=== PATIENT | male | born 1995 | race Caucasian/White ===

== ENCOUNTER 2017-06-14 17:01 | Emergency (ER) | payer OTHER ==
[2017-06-14 17:56] VITALS: BP 125/73
--- NOTE | 2017-06-14 18:14 | UC ---
Nausea/Vomiting/Diarrhea HPI - HPI Summary HPI Summary: 21 year old male presents with complains of cough, nasal congestion, and nausea. - History of Current Complaint Chief Complaint: UCGeneralIllness Stated Complaint: ACHY VOMITING COUGH CONGESTION Time Seen by Provider: 06/14/17 18:13 Hx Obtained From: Patient Onset/Duration: Sudden Onset Severity Initially: Moderate Severity Currently: Moderate - Allergies/Home Medications Allergies/Adverse Reactions: Allergies Allergy/AdvReac Type Severity Reaction Status Date / Time Penicillin V Allergy Rash Verified 06/14/17 17:52 Home Medications: Home Medications Dextromethorphan-Phenylephrine [Vicks Dayquil Cold & Flu] 2 cap PO Q6H PRN 06/14 [History Confirmed 06/14/17] Pseudoephedrine TAB* [Sudafed TAB*] 30 mg PO TID PRN 06/14/17 [History Confirmed 06/14/17] PMH/Surg Hx/FS Hx/Imm Hx Previously Healthy: Yes - Surgical History Surgical History: Yes Surgery Procedure, Year, and Place: 2009 R inner ear - Social History Alcohol Use: None Substance Use Type: None Smoking Status (MU): Never Smoked Tobacco - Immunization History Vaccination Up to Date: Yes Review of Systems Constitutional: Negative Skin: Negative Eyes: Negative ENT: Negative Respiratory: Negative Cardiovascular: Negative Gastrointestinal: Vomiting, Nausea Genitourinary: Negative Motor: Negative Neurovascular: Negative Musculoskeletal: Negative Neurological: Negative Psychological: Negative All Other Systems Reviewed And Are Negative: Yes Physical Exam Triage Information Reviewed: Yes Appearance: Ill-Appearing Vital Signs: Initial Vital Signs Temp 37.4 C 06/14/17 17:53 Pulse 128 06/14/17 17:53 Resp 16 06/14/17 17:53 BP 125/73 06/14/17 17:53 Pulse Ox 97 06/14/17 17:53 Vital Signs Reviewed: Yes Eye Exam: Normal ENT Exam: Normal Dental Exam: Normal Neck exam: Normal Neck: Positive: 1 Respiratory Exam: Normal Cardiovascular Exam: Normal Abdominal Exam: Normal Musculoskeletal Exam: Normal Neurological Exam: Normal Psychological Exam: Normal Skin Exam: Normal Naus/Vom/Diarrhea Course/Dx - Differential Dx/Diagnosis Provider Diagnoses: cough. nasal congestion. nausea. vomitting Condition At Discharge: Stable Discharge - Discharge Plan Condition: Stable Disposition: HOME Prescriptions: Azithromyxin BIANKA (NF) [Z-Bianka (Zithromax) 250 mg tabs #6] 2 tab PO .TODAY, THEN 1 DAILY #6 tab Methylprednisolone [Medrol Dosepak 4 MG*] 4 mg PO .SEE BIANKA INSTRUCTION #21 tab Promethazine-Dm [Promethazine/Dextromethor 6.25-15 mg/5Ml] 1 teasp PO Q8H PRN # 120 ml PRN Reason: Cough Patient Education Materials: Sinusitis (ED) Forms: *Work Release Referrals: NYA Grant [Primary Care Provider] -
== END 2017-06-14 18:56 | disposition home or self-care (01) ==
LOC: UCCORT 17:01
DX: R11.2 Nausea with vomiting, unspecified (principal); R09.81 Nasal congestion; R05 Cough; Z88.0 Allergy status to penicillin
CPT/HCPCS: 87502; 99212; G0463

== ENCOUNTER 2017-06-16 13:00 | Emergency (ER) | payer OTHER ==
[2017-06-16 13:10] VITALS: BP 124/74
--- NOTE | 2017-06-16 13:26 | UC ---
Respiratory Complaint HPI - HPI Summary HPI Summary: cough, congestion, chills and vomiting. This hasbeen present for about 4 days. No improvement after treatment two days ago. Flu test neg two days ago. - History of Current Complaint Chief Complaint: UCRespiratory Stated Complaint: RE-CK FLU LIKE SXS Time Seen by Provider: 06/16/17 13:10 Hx Obtained From: Patient Onset/Duration: Gradual Onset, Lasting Days Timing: Constant Severity Initially: Moderate Severity Currently: Moderate Character: Cough: Nonproductive Aggravating Factors: Deep Breaths, Recumbent Position Alleviating Factors: Nothing Associated Signs And Symptoms: Positive: Chills, URI, Nasal Congestion. Negative: Fever, Sinus Discomfort - Allergies/Home Medications Allergies/Adverse Reactions: Allergies Allergy/AdvReac Type Severity Reaction Status Date / Time Penicillin V Allergy Rash Verified 06/16/17 13:07 PMH/Surg Hx/FS Hx/Imm Hx Previously Healthy: Yes - no prior lung disease. - Surgical History Surgical History: Yes Surgery Procedure, Year, and Place: 2009 R inner ear - Family History Known Family History: Positive: Other - no related family history. - Social History Occupation: Employed Full-time Lives: With Family Alcohol Use: None Substance Use Type: None Smoking Status (MU): Never Smoked Tobacco - Immunization History Most Recent Influenza Vaccination: no Vaccination Up to Date: Yes Review of Systems ENT: Sore Throat, Sinus Congestion Respiratory: Cough All Other Systems Reviewed And Are Negative: Yes Physical Exam Triage Information Reviewed: Yes Appearance: Well-Appearing - non toxic. there is obvious nasal congestion but he is alert and pleasant., No Pain Distress, Well-Nourished Vital Signs: Initial Vital Signs Temp 98.9 F 06/16/17 13:03 Pulse 104 06/16/17 13:03 Resp 18 06/16/17 13:03 BP 124/74 06/16/17 13:03 Pulse Ox 99 06/16/17 13:03 Vital Signs Reviewed: Yes Eyes: Positive: Conjunctiva Clear ENT: Positive: Pharynx normal, Nasal congestion, Other: - left TM perforation. appears chronic.. Negative: Pharyngeal erythema, Tonsillar swelling, Tonsillar exudate, Trismus Neck exam: Normal Neck: Positive: Supple, Nontender, No Lymphadenopathy Respiratory: Positive: Chest non-tender, Lungs clear, Normal breath sounds, No respiratory distress, No accessory muscle use. Negative: Respiratory distress, Decreased breath sounds, Accessory muscle use, Crackles, Rhonchi, Stridor, Wheezing Cardiovascular: Positive: No Murmur, Pulses Normal, Brisk Capillary Refill, Tachycardia Abdomen Description: Positive: Nontender, No Organomegaly, Soft. Negative: Distended, Guarding Musculoskeletal Exam: Normal Musculoskeletal: Positive: Strength Intact, ROM Intact, No Edema Neurological: Positive: Alert, Muscle Tone Normal. Negative: Fatigued Skin: Negative: rashes UC Diagnostic Evaluation - Laboratory O2 Sat by Pulse Oximetry: 99 Respiratory Course/Dx - Course Course Of Treatment: no signs of bacterial infection. He is well except for the mild tachycardia. there are otherwise no signs of dehydration. He has only vomited twice today. No fever. - Differential Dx/Diagnosis Provider Diagnoses: viral illness Discharge - Discharge Plan Condition: Good Disposition: HOME Patient Education Materials: Upper Respiratory Infection (ED) Forms: *Work Release Referrals: NYA Grant [Primary Care Provider] - Additional Instructions: return here for any worsening. dry mucinex decongestant.
== END 2017-06-16 13:47 | disposition home or self-care (01) ==
LOC: UCCORT 13:00
DX: R05 Cough (principal); R09.89 Other specified symptoms and signs involving the circulatory and respiratory systems; R50.9 Fever, unspecified; R11.2 Nausea with vomiting, unspecified; B34.9 Viral infection, unspecified
CPT/HCPCS: 99212; G0463

== ENCOUNTER 2017-07-30 07:22 | Day surgery (SDC) | payer OTHER ==
[~2017-07-30 07:22] MED LIST: Acetaminophen TAB* 325 MG PO ONE; Buffered Lidocaine 0.9% SYRIN* 5 ML/SYR SYRINGE INTRADERM ONE; Dexamethasone IV* 4 MG/ML 1 ML (4 MG) IV SLOW PU ONE; Famotidine TAB* 20 MG PO ONE; Levalbuterol 0.63MG/3ML NEB* UNIT OF USE INH ONE
[2017-07-30] MEDS ORDERED: Famotidine IV* 10 MG/ML 2 ML (20 mg) ONE (07:27)
[2017-07-30] MEDS ORDERED: Acetaminophen TAB* 325 MG ONE (07:27)
[2017-07-30] MEDS ORDERED: Buffered Lidocaine 0.9% SYRIN* 5 ML/SYR SYRINGE ONE (07:27)
[2017-07-30] MEDS ORDERED: Dexamethasone IV* 4 MG/ML 1 ML (4 MG) ONE (07:27)
[2017-07-30] MEDS ORDERED: Levalbuterol 1.25MG/0.5ML NEB ONE (07:27)
[2017-07-30] MEDS ORDERED: Famotidine TAB* 20 MG ONE (07:41)
[2017-07-30] MEDS ORDERED: fentaNYL* 50 MCG/ML 2 ML VIAL (100 MCG VIAL) ONE (08:06)
[2017-07-30] MEDS ORDERED: Propofol* 10 MG/ML 20 ML BTL IV PUSH ONE ×2 (08:06→09:09)
[2017-07-30] MEDS ORDERED: Lidocaine 2% PF * 5 ML VIAL ONE (08:06)
[2017-07-30] MEDS ORDERED: Midazolam* 1 MG/ML 2 ML VIAL (2 MG) ONE (08:06)
[2017-07-30] MEDS ORDERED: Ofloxacin 0.3% OTIC.SOL* 5 ML BTL ONE (08:13)
[2017-07-30] MEDS ORDERED: EPINEPHrine AMP 1 MG/ML ONE (08:14)
[2017-07-30] MEDS ORDERED: Bacitracin OINTMENT* 1 TUBE ONE (08:14)
[2017-07-30] MEDS ORDERED: Gelfoam 12-7 ADSORBABL SPONGE* 1 EA SPONGE ONE (08:14)
[2017-07-30] MEDS ORDERED: Lidocaine 1% MPF wEPI 200,000* 30 ML SDV ONE (08:14)
[2017-07-30] MEDS ORDERED: HYDROmorphone INJ* 1 MG/ML CARPUJECT SYRINGE IV PRN (08:30)
[2017-07-30] MEDS ORDERED: fentaNYL* 50 MCG/ML 2 ML VIAL (100 MCG VIAL) IV PRN (08:30)
[2017-07-30] MEDS ORDERED: oxyCODONE TAB* 5 MG TAB PO PRN (08:30)
[2017-07-30] MEDS ORDERED: Ondansetron INJ* 2 MG/ML VIAL IV PRN (08:30)
[2017-07-30] MEDS ORDERED: Ibuprofen TAB* 600 MG PO PRN (08:30)
[2017-07-30] MEDS ORDERED: Ondansetron INJ* 2 MG/ML VIAL ONE (09:16)
[2017-07-30 11:42] VITALS: BP 136/85
--- NOTE | 2017-07-31 06:16 | OP ---
DATE OF OPERATION: 07/30/17 - [facility] DATE OF : 89 SURGEON: Robert Valencia MD ANESTHESIA: Under laryngeal mask airway anesthesia. PRE-OP DIAGNOSIS: Left tympanic membrane perforation. POST-OP DIAGNOSIS: Left tympanic membrane perforation. OPERATIVE PROCEDURE: Left type 1 tympanoplasty. COMPLICATIONS: None. DISPOSITION: Good. SPECIMENS: None. ESTIMATED BLOOD LOSS: Minimum. DESCRIPTION OF PROCEDURE: The patient was taken to the operating room and placed in the supine position on the operating table. General anesthesia was induced and he was maintained with laryngeal mask airway anesthesia, turned and draped for the surgery. Using the microscope, 4-quadrant canal injections were performed with 1% lidocaine with 1:200,000 epinephrine. A postauricular injection was made and an injection where I was going to raise the temporalis graft. He was prepped with Betadine. He had a large central perforation pretty much extending from the posterior to anterior quadrants, right almost to the anulus. Using a Gamble needle, done. The rim was removed with cupped forceps and some of the tympanic membrane was lifted off of the umbo and long process of the malleus. A posterior canal incision was made with a 70- degree Louis. was used to elevate the tympanomeatal flap, annulus was opened and the flap was elevated anteriorly with the tympanic membrane. Cottonoids impregnated with 1:100,000 epinephrine was placed. Incision was made post-auricularly at the superior aspect of the ear to harvest the temporalis fascia graft. The dissection was taken down to the temporalis fascia. This was opened and the graft was harvested. The wound was closed with 4-0 deep dermal of Vicryl and then skin glue. The ear was then re- examined. The cotton ball was removed. Gelfoam impregnated with Ciprodex drops was put in the middle ear space for the scaffolding for the graft. The graft had been pressed and dried. It was shaped and then inserted over the Gelfoam underneath the tympanic membrane, positioned. The tympanomeatal flap was reflected back over, proper closure of the perforation was ensured. Gelfoam impregnated with antibiotic drops were placed over the graft and tympanic membrane, completely covering this and then the rest of the canal was filled up with some bacitracin ointment. The cotton ball was placed. The patient tolerated procedure well. No complications. Transferred to Recovery in stable condition. [id number]/[facility] #: [id number] [facility] HOSPITALGregor
== END 2017-07-30 11:58 | disposition home or self-care (01) ==
LOC: OR 07:22
PROVIDERS: ATTEND Otolaryngology
DX: H72.02 Central perforation of tympanic membrane, left ear (principal); F17.210 Nicotine dependence, cigarettes, uncomplicated
CPT/HCPCS: A9270-GY; J0171; J1100; J2001; J2250; J2405; J2704; J3010

== ENCOUNTER 2019-05-15 13:37 | Emergency (ER) | payer OTHER ==
[2019-05-15 14:23] VITALS: BP 145/78
[2019-05-15] MEDS ORDERED: Albuterol 2.5 MG/3 ML NEB.SOL* (0.083%) INH ONE (14:30)
[2019-05-15] MEDS ORDERED: Ibuprofen ADULT LIQ* 600 MG/30 ML UDC PO ONE (14:30)
--- NOTE | 2019-05-15 14:32 | UC ---
General HPI - HPI Summary HPI Summary: sudden sore throat, headache and cough since this am. + fever, chills, congestion, sob, and bodyaches. - History of Current Complaint Chief Complaint: UCGeneralIllness Stated Complaint: COUGH,THROAT COMPLAINT Time Seen by Provider: 05/15/19 14:26 Onset/Duration: Sudden Onset Timing: Constant Pain Intensity: 5 - Allergy/Home Medications Allergies/Adverse Reactions: Allergies Allergy/AdvReac Type Severity Reaction Status Date / Time Penicillins Allergy Rash Verified 05/15/19 14:20 Home Medications: Home Medications Varenicline Tartrate [Chantix Starting M... 0.5 mg X 11 & 1 mg X 42] 1 larry PO DAILY 05/15/19 [History Confirmed 05/15/19] PMH/Surg Hx/FS Hx/Imm Hx Previously Healthy: Yes - Surgical History Surgical History: Yes Surgery Procedure, Year, and Place: right ear x2. left ear - Family History Known Family History: Positive: Other - no related family history. - Social History Occupation: Employed Full-time Alcohol Use: None Substance Use Type: None Smoking Status (MU): Light Every Day Tobacco Smoker Amount Used/How Often: 3 CIGARETTES PER DAY Have You Smoked in the Last Year: Yes When Did the Patient Quit Smoking/Using Tobacco: 3 WEEKS AGO Household Exposure Type: Cigarettes - Immunization History Most Recent Influenza Vaccination: no Vaccination Up to Date: Yes Review of Systems All Other Systems Reviewed And Are Negative: No Constitutional: Positive: Fever, Chills Eyes: Negative: Drainage, Eye Redness ENT: Positive: Sore Throat. Negative: Ear Ache, Sinus Pain/Tenderness Respiratory: Positive: Shortness Of Breath, Cough Cardiovascular: Negative: Palpitations, Chest Pain Gastrointestinal: Negative: Abdominal Pain, Vomiting, Diarrhea, Nausea Genitourinary: Negative: Dysuria Musculoskeletal: Positive: Myalgia Neurological: Positive: Headache Physical Exam Triage Information Reviewed: Yes Appearance: Ill-Appearing - but non toxic Vital Signs: Initial Vital Signs Temp 100.6 F 05/15/19 14:18 Pulse 111 05/15/19 14:18 Resp 19 05/15/19 14:18 BP 145/78 05/15/19 14:18 Pulse Ox 96 05/15/19 14:18 Vital Signs Reviewed: Yes Eyes: Positive: Conjunctiva Clear ENT: Positive: Pharyngeal erythema, TMs normal, Uvula midline. Negative: Nasal congestion, Nasal drainage, Trismus, Muffled voice, Hoarse voice Neck: Positive: Supple, Nontender, No Lymphadenopathy Respiratory: Positive: No respiratory distress, Decreased breath sounds Cardiovascular: Positive: No Murmur, Tachycardia - [id number] Abdomen Description: Positive: Nontender, No Organomegaly, Soft Bowel Sounds: Positive: Present Musculoskeletal: Positive: ROM Intact Neurological: Positive: Alert Psychological: Positive: Age Appropriate Behavior Skin Exam: Normal Skin: Negative: Rashes Diagnostics - Laboratory Lab Results: RAPID FLU=NEGATIVE RAPID STREP=NEGATIVE - Radiology No standard instances Radiology Interpretation Completed By: Radiologist - CXR IMPRESSION: NO ACTIVE CARDIOPULMONARY DISEASE. Re-Evaluation - Re-Evaluation First Eval Re-Evaluation Time: 15:03 Change: Improved - much better aeration. Course/Dx - Differential Dx - Multi-Symptom Differential Diagnoses: Other - non toxic. not hypoxic. cxr=nad. strep& flu negative. abtibiotic not indicated - Diagnoses Provider Diagnosis: Influenza-like illness Discharge ED - Sign-Out/Discharge Documenting (check all that apply): Patient Departure All imaging exams completed and their final reports reviewed: Yes - Discharge Plan Condition: Stable Disposition: HOME Patient Education Materials: Viral Syndrome (ED) Forms: *Work Release Referrals: NYA Grant [Medical Doctor] - Additional Instructions: FOLLOW UP IF NOT BETTER IN 5 DAYS OR SOONER IF WORSE. - Billing Disposition and Condition Condition: STABLE Disposition: Home
[2019-05-15 15:01] LABS: Influenza A Molecular NEGATIVE (Negative); Influenza B Molecular NEGATIVE (Negative)
== END 2019-05-15 15:16 | disposition home or self-care (01) ==
LOC: UCCORT 13:37
DX: J02.9 Acute pharyngitis, unspecified (principal); R51 Headache; R05 Cough; R50.9 Fever, unspecified; R09.81 Nasal congestion; R06.02 Shortness of breath; R52 Pain, unspecified; F17.210 Nicotine dependence, cigarettes, uncomplicated
CPT/HCPCS: 71046; 87651; 99212; A9270-GY; G0463